=== PATIENT | male | born 1965 | race Caucasian/White ===

== ENCOUNTER 2023-12-31 16:43 | Inpatient (IN) | payer OTHER ==
[~2023-12-31] VITALS: Ht 175.3 cm; Wt 73.5 kg
--- NOTE | 2023-12-31 16:58 | ED.PDOC ---
GI ASSESSMENT HPI Comments 58 year old male NAHOMI presents to the ED with chief complaint of abdominal pain. Patient reports that he was on a hike yesterday and had drank unfiltered stream water, then a few hours later at home he begun to experience diffuse abdominal pain, distention, nausea, vomiting, and diarrhea. EMS relays patient on scene had a blood glucose of 343, having history of diabetes but not taking any medication for management. EMS states patient had ledesma discoloration to his arms and blue color to his lips at the scene, but they have since resolved. Patient denies any hematemesis, fever, chills, dizziness, or melena. Patient was hypertensive and tachycardic at arrival. Chief Complaint: Abdominal Pain Time Seen by MD: 16:52 Reviewed Notes: Nurses Notes, Javascript Front End Developer Notes, Medications, Allergies Information Source: Patient, Emergency Med Personnel Mode of Arrival: EMS Timing: Days Duration: Since onset Prehospital treatment: None Quality: Sharp Vomitus: Bilious, Food Particles, Watery Stool: Moderate, Watery Severity: Moderate Recent: Other (Drank unclean water from stream) Recent Hx of: Diabetes Pain Location: Diffuse, Periumbilical Modifying Factors: Nothing Associated sign and symptoms: Nausea, Vomiting, Diarrhea, Abdominal Pain Past Medical History PAST MEDICAL HISTORY: DM Surgical History: Denies all surgeries Family History Family History: Reviewed,noncontributory to illness Social History Smoker: Non-Smoker Alcohol: Denies ETOH Use Drugs: Denies Drug Use Lives In: Home Constitutional: denies: chills, diaphoresis, fatigue, fever, malaise, sweats, weakness, others EENTM: denies: blurred vision, double vision, ear bleeding, ear discharge, ear drainage, ear pain, ear ringing, eye pain, eye redness, hearing loss, mouth pain, mouth swelling, nasal discharge, nose bleeding, nose congestion, nose pain, photophobia, tearing, throat pain, throat swelling, voice changes, others Respiratory: denies: cough, hemoptysis, orthopnea, SOB at rest, shortness of breath, SOB with excertion, stridor, wheezing, others Cardiovascular: denies: chest pain, dizzy spells, diaphoresis, Dyspnea on exertion, edema, irregular heart beat, left arm pain, lightheadedness, palpitations, PND, syncope, others Gastrointestinal: reports: abdomen distended, abdominal pain, diarrhea, nausea, vomiting; denies: blood streaked bowels, constipated, dysphagia, difficulty swallowing, hematemesis, melena, poor appetite, poor fluid intake, rectal bleeding, rectal pain, others Genitourinary: denies: burning, dysuria, flank pain, frequency, hematuria, incontinence, penile discharge, penile sore, pain, testicle pain, testicle swelling, urgency, others Neurological: reports: headache; denies: dizziness, fainting, left sided numbness, left sided weakness, numbness, paresthesia, pre-existing deficit, right sided numbness, right sided weakness, seizure, speech problems, tingling, tremors, weakness, others Musculoskeletal: denies: back pain, gout, joint pain, joint swelling, muscle pain, muscle stiffness, neck pain, others Integumetry: denies: bruises, change in color, change in hair/nails, dryness, laceration, lesions, lumps, rash, wounds, others Allergic/Immunocompromised: denies: Difficulty Healing, Frequent Infections, Hives, Itching, others Hematologic/Lymphatic: denies: anemia, blood clots, easy bleeding, easy bruising, swollen glands, others Endocrine: denies: excessive hunger, excessive sweating, excessive thirst, excessive urination, flushing, intolerance to cold, intolerance to heat, unexplained weight gain, unexplained weight loss, others Psychiatric: denies: anxiety, bipolar disorder, depression, hopeless, panic disorder, schizophrenia, sleepless, suicidal, others Physical Exam General Appearance: Moderate Distress (Patient presents as a moderately ill 58-year-old male.), Normal HEENT: Normal ENT Inspection, PERRL/EOMI Neck: Full Range of Motion, Non-Tender, Normal, Normal Inspection Respiratory: Chest Non-Tender, Lungs Clear, No Accessory Muscle Use, No Respiratory Distress, Normal Breath Sounds Cardiovascular: No Edema, No JVD, No Murmur, No Gallop, Normal Peripheral Pulses, Regular Rate/Rhythm Breast Exam: Deferred Gastrointestinal: No Pulsatile Mass, Normal Bowel Sounds, Tenderness (Diffuse tenderness to palpation throughout the periumbilical region with a mildly rigid abdomen. No pulsatile masses. No signs of trauma.) Genitalia: Deferred Pelvic: Deferred Rectal: Deferred Extremities: No calf tenderness, Normal capillary refill, Normal inspection, Normal range of motion, Non-tender, No pedal edema Musculoskeletal : Apperance: Normal Neurologic: Alert, No Motor Deficits, Normal Affect, Normal Mood, No Sensory Deficits Cerebellar Function: Normal Reflexes: Normal Skin: Dry, Normal Color, Warm Lymphatic: No Adenopathy Was a procedure done? Was a procedure done?: No GI differential Dx Differential Diagnosis: Appendicitis, Bowel Obstruction, Cholangitis, Cholecystitis, Constipation, Diverticular disease, Gastritis/PUD, Gastroenteritis, Pancreatitis, UTI, Food Poisoning, Bacterial, Parasitic, Viral, Kidney Stone X-Ray, Labs, Meds, VS Vital Signs Date Time Temp Pulse Resp B/P (MAP) Pulse Ox O2 Delivery O2 Flow Rate FiO2 12/31/23 18:32 82 18 139/89 12/31/23 16:48 99.7 114 20 132/92 (105) 95 Lab Test 12/31/23 18:38 12/31/23 18:00 12/31/23 17:06 Range/Units Lactic Acid Level Pending 3.9 *H 0.4-2.0 mmol/L Urine Color Yellow Yellow Urine Clarity Clear Clear Urine pH 5.0 5.0-9.0 Urine Specific [place] 1.038 H 1.001-1.035 Urine Protein Trace H Negative Urine Ketones 1+ H Negative Urine Blood Negative Negative /uL Urine Nitrite Negative Negative Urine Bilirubin Negative Negative Urine Urobilinogen Normal Negative mg/dL Urine Leukocyte Esterase Negative Negative /uL Urine RBC 2 0 - 3 /hpf Urine WBC 1 0 - 3 /hpf Urine Squamous Epithelial Cells Few <5 /hpf Urine Bacteria None seen None Seen /hpf Urine Hyaline Casts Few 0 - 2 /lpf Urine Mucus Few None Seen Urine Glucose 4+ H Normal mg/dL White Blood Count 8.7 4.4-10.8 10^3/uL Red Blood Count 5.43 4.5-5.90 10^6/uL Hemoglobin 18.5 H 13.5-17.5 g/dL Hematocrit 54.5 H 41.0-53.0 % Mean Corpuscular Volume 100.4 H 80.0-100.0 fL Mean Corpuscular Hemoglobin 34.0 H 28.0-32.0 pg Mean Corpuscular Hemoglobin Concent 33.9 32.0-36.0 g/dL Red Cell Distribution Width 13.4 11.8-14.3 % Platelet Count 323 140-450 10^3/uL Mean Platelet Volume 7.6 6.9-10.8 fL Neutrophils (%) (Auto) 83.7 H 37.0-80.0 % Lymphocytes (%) (Auto) 7.1 L 10.0-50.0 % Monocytes (%) (Auto) 6.8 0.0-12.0 % Eosinophils (%) (Auto) 1.3 0.0-7.0 % Basophils (%) (Auto) 1.1 0.0-2.0 % Neutrophils # (Auto) 7.2 1.6-8.6 10 ^3/uL Lymphocytes # (Auto) 0.6 0.4-5.4 10 ^3/uL Monocytes # (Auto) 0.6 0-1.3 10 ^3/uL Eosinophils # (Auto) 0.1 0-0.8 10 ^3/uL Basophils # (Auto) 0.1 0-0.2 10 ^3/uL Nucleated Red Blood Cells 0.3 % Sodium Level 129 L 136-145 mmol/L Potassium Level 4.1 3.5-5.1 mmol/L Chloride Level 98 98-107 mmol/L Carbon Dioxide Level 22 20-31 mmol/L Anion Gap 9 5-15 Blood Urea Nitrogen 17 9-23 mg/dL Creatinine 1.15 0.700-1.30 mg/dL Glomerular Filtration Rate Calc 74 >90 mL/min BUN/Creatinine Ratio 14.8 10.0-20.0 Serum Glucose 362 H 74-106 mg/dL Calcium Level 9.6 8.7-10.4 mg/dL Total Bilirubin 0.8 0.2-1.0 mg/dL Aspartate Amino Transferase (AST) 20 13-40 U/L Alanine Aminotransferase (ALT) 31 7-40 U/L Alkaline Phosphatase 95 46-116 U/L Troponin I High Sensitivity 3 L </=54 ng/L Total Protein 7.7 5.7-8.2 g/dL Albumin 4.8 3.2-4.8 g/dL Lipase 36 12-53 U/L Current Medications Medications (Trade) Dose Ordered Sig/Damien Route Start Time Stop Time Status Last Admin Ondansetron HCl (Zofran) 4 mg ONCE ONCE IM 12/31/23 17:00 12/31/23 17:01 DC 12/31/23 18:33 Metronidazole (Flagyl Tablet) 500 mg ONCE ONCE PO 12/31/23 17:00 12/31/23 17:01 DC 12/31/23 18:33 Hydromorphone HCl (Dilaudid Injection) 0.5 mg ONCE ONCE IM 12/31/23 17:00 12/31/23 17:01 DC 12/31/23 18:32 Sodium Chloride 1,000 ml @ 1,000 mls/hr Q1H ONCE IV 12/31/23 18:30 12/31/23 19:29 12/31/23 19:09 Insulin Human Lispro (HumaLOG) 15 units ONCE ONCE SC 12/31/23 18:30 12/31/23 18:31 DC 12/31/23 19:09 Pantoprazole Sodium (Protonix) 40 mg ONCE ONCE IV 12/31/23 19:00 12/31/23 19:01 DC 12/31/23 19:10 X-Ray, Labs, Meds, VS Comment All studies performed the ED today were evaluated by me personally. Serum laboratories revealed a hyponatremia state as well as a hyperglycemic and elevated lactic acid concern. EKG confirmed a sinus rhythm with a rate of 96. Prolonged MD interval was noted with biatrial enlargement. MD interval was 246 and QT interval was 332. CT of abdomen and pelvis revealed a high-grade small- bowel obstruction with likely transition point right lower quadrant. Surgical evaluation was recommended. Patient will be admitted for surgical consultation, pain management , electrolyte and blood sugar management. Time of 1ST Reevaluation: 19:20 Reevaluation 1ST: Improved Consultation: PCP, GI, Surgery Patient Education/Counseling: Diagnosis, Treatment Family Education/Counseling: Diagnosis, Treatment, No Family Present Departure 1 Departure Time of Disposition: 19:21 Impression: Primary Impression: Small bowel obstruction Additional Impressions: Hyponatremia Elevated lactic acid level Hyperglycemia due to diabetes mellitus Disposition: ADMITTED INPATIENT Condition: Stable Discharged With: Self, Spouse Critical Care Note Critical Care Time?: No Stability Stability form required: No Heart Score Heart Score: Heart Score Response (Comments) Value History Slightly Suspicious 0 EKG Repolarization Disturb 1 Age 45-64 1 Risk Factors 1 or 2 risk factors 1 Troponin Normal limit 0 Total 3 I personally scribed for MEL WILSON PAC ([email or web address]) on 12/31/23 at 16:58. Electronically submitted by Paul Harman ([email or web address]). MEL WILSON PAC Dec 31, 2023 16:58
[2023-12-31 17:28] LABS: Basophils # (auto) 0.1 10 ^3/uL (0-0.2); Basophils % (auto) 1.1 % (0.0-2.0); Eosinophils # (auto) 0.1 10 ^3/uL (0-0.8); Eosinophils % (auto) 1.3 % (0.0-7.0); Hematocrit 54.5 % (41.0-53.0); Hemoglobin 18.5 g/dL (13.5-17.5); Lymphocytes # (auto) 0.6 10 ^3/uL (0.4-5.4); Lymphocytes % (auto) 7.1 % (10.0-50.0); Mean Corpuscular Hgb Conc. 33.9 g/dL (32.0-36.0); Mean Corpuscular Volume 100.4 fL (80.0-100.0); Monocytes # (auto) 0.6 10 ^3/uL (0-1.3); Monocytes % (auto) 6.8 % (0.0-12.0); Neutrophils # (auto) 7.2 10 ^3/uL (1.6-8.6); Neutrophils % (auto) 83.7 % (37.0-80.0); Nucleated Red Blood Cells % 0.3 %; Platelet Count (auto) 323 10^3/uL (140-450); Red Blood Cells 5.43 10^6/uL (4.5-5.90); Red Cell Distribution Width 13.4 % (11.8-14.3); White Blood Cell 8.7 10^3/uL (4.4-10.8)
--- NOTE | 2023-12-31 18:07 | DVH ---
Exam: CT CT AB PEL WO CON-NO ORAL OR IV History: Diffuse abdominal pain Comparison Study: None Technique: Multidetector spiral CT of the abdomen and pelvis was performed from lung bases to pubic symphysis. Imaging was performed without IV contrast. Axial, coronal and sagittal multiplanar reform ats were obtained from the axial data set by the technologist. Radiation dose : Abdomen/Pelvis: CTDIvol 6.86 mGy, DLP 369.2 mGy*cm. Findings: Evaluation of solid organs is limited due to lack of intravenous contrast use. Lung Bases: No acute or significant lung base finding. Normal heart size. No pleural or pericardial effusion. Liver: The liver is normal in size. No focal lesions. Gallbladder and biliary Tree: Unremarkable Spleen: Unremarkable Pancreas: The pancreas is grossly normal in appearance. Adrenal Glands: Unremarkable Kidneys: Likely hyperdense right renal cyst is sub cm. No hydronephrosis or nephrolithiasis. Bladder: Grossly unremarkable for degree of distention. Bowel: The stomach is grossly normal in appearance. There is diffuse distention of small bowel with a ir-fluid levels. Possible transition point in the right lower quadrant. The appendix is not visualiz ed; however, no secondary findings of acute appendicitis identified. Ascites: Absent Lymphadenopathy: No mesenteric, retroperitoneal or periportal lymphadenopathy. Abdominal wall and Mesentery: Unremarkable. Vasculature: The visualized abdominal aorta is normal in size and caliber. Evaluation of abdominal a nd pelvic vessels is limited due to lack of intravenous contrast. Pelvic Organs: Unremarkable Musculoskeletal: No aggressive focal bony lesions, acute fractures or dislocation. IMPRESSION: 1. High-grade small-bowel obstruction with a likely transition point in the right lower quadrant. Solares rgical evaluation is recommended. Radiation optimization: All CT scans at this facility use at least one of these dose optimization yon hniques: Automated exposure control mA and/or kV adjustment per patient size (includes targeted exams where dose is matched to clinical indication) or iterative reconstruction. HS:Y
[2023-12-31 18:18] LABS: Alanine Aminotransferase 31 U/L (7-40); Albumin 4.8 g/dL (3.2-4.8); Alkaline Phosphatase 95 U/L (46-116); Aspartate Aminotransferase 20 U/L (13-40); Bilirubin, Total 0.8 mg/dL (0.2-1.0); Calcium 9.6 mg/dL (8.7-10.4); Chloride 98 mmol/L (98-107); Glucose 362 mg/dL (74-106); Lipase 36 U/L (12-53); Potassium 4.1 mmol/L (3.5-5.1); Sodium 129 mmol/L (136-145); Total Protein 7.7 g/dL (5.7-8.2)
[2023-12-31 18:20] LABS: Anion Gap 9 (5-15); BUN/Creatinine Ratio 14.8 (10.0-20.0); Blood Urea Nitrogen 17 mg/dL (9-23); Carbon Dioxide 22 mmol/L (20-31)
[2023-12-31 18:22] LABS: Lactic Acid w/Reflex 3.9 mmol/L (0.4-2.0)
[2023-12-31] MEDS: HYDROmorphone HCL 2 MG/ML VL/or syr IM ONE (18:32)
[2023-12-31] MEDS: ONDANSETRON HCL 4 MG/2 ML VIAL IM ONE (18:33)
[2023-12-31] MEDS: metroNIDAZOLE 500 MG TAB PO ONE (18:33)
[2023-12-31 18:42] LABS: Urine Bacteria None Seen /hpf (None Seen)
[2023-12-31 18:53] LABS: Urine Blood Negative /uL (Negative); Urine Clarity Clear (Clear); Urine Color Yellow (Yellow); Urine Hyaline Cast FEW /lpf (0 - 2); Urine Mucus FEW (None Seen); Urine Protein, UAD TRACE (Negative); Urine Specific Gravity 1.038 (1.001-1.035); Urine Urobilinogen Normal (Negative); Urine WBC 1 /hpf (0 - 3)
[2023-12-31] MEDS: SODIUM CHLORIDE 0.9% 1,000 ML IV ONE (19:09)
[2023-12-31] MEDS: INSULIN LISPRO (HUMAN) 100 UNITS/ML ML SC ONE (19:09)
[2023-12-31] MEDS: PANTOPRAZOLE 40 MG/10 ML VIAL INJ IV ONE (19:10)
[2023-12-31 19:15] VITALS: PULSE 102; RESP 12; O2SAT 96
[2023-12-31] MEDS: HYDROMORPHONE HCL 1 MG/ML INJ IV ONE (20:58)
[2023-12-31] MEDS: HYDROmorphone HCL 2 MG/ML VL/or syr IV ONE (21:16)
[2023-12-31] MEDS ORDERED: ONDANSETRON HCL 4 MG/2 ML VIAL IV PRN (22:45)
[2023-12-31] MEDS ORDERED: MORPHINE SULFATE INJ 2 MG/ml SYRG IV PRN (22:45)
[2023-12-31] MEDS ORDERED: DEXTROSE (50%) 50ML SYRG IV PRN (22:45)
[2023-12-31] MEDS ORDERED: NITROGLYCERIN 0.4 MG SL TAB SL PRN (22:45)
[2023-12-31] MEDS: SODIUM CHLORIDE 0.9% 1,000 ML IV SCH (22:45)
[2023-12-31] MEDS ORDERED: ACETAMINOPHEN 325 MG TAB PO PRN (22:45)
--- NOTE | 2023-12-31 22:47 | DVHHP2 ---
History of Present Illness Reason for Visit: Small-bowel obstruction History of Present Illness The patient is a 58-year-old male with past medical history of diabetes mellitus who presented to [facility] ED with complaint of acute abdominal pain. Patient reports that he was on a hike yesterday and had drank unfiltered stream water, a few hours later at home, he begun to experience diffuse abdominal pain, distention, nausea, vomiting, and diarrhea, getting worse that prompted this visit. Patient was seen and evaluated in the ED, laboratory data shows WBC 8.7, hemoglobin 18.5, hematocrit 54.5, platelets 323, sodium 129, potassium 4.1, BUN 17, creatinine 1.15, glucose 362, lactic acid 3.7 troponin 3, AST 20, ALT 31, lipase 36. Abdomen/pelvis CT revealing high-grade small-bowel obstruction with likely transition point in the right lower quadrant. Patient was started on IV antibiotic regimen Flagyl, given IV Dilaudid 0 5 mg x 1, please see medication orders section in the computer. On my assessment, patient denies chest pain, no headache, no dizziness, no diaphoresis, no shortness of breath, no abdominal pain, nausea or vomiting at this moment, no hematemesis, no fever, no chills. Patient was admitted for further evaluation and medical management. Past Medical History DM Past Surgical History Denies all surgeries Family History Reviewed, noncontributory to the management of this case. Past Social History The patient lives at home, denies smoking, alcohol or illicit drugs abuse. Review of Systems Constitutional: No: Fever, Chills, Sweats, Weakness, Malaise, Other Eyes: No: Pain, Vision change, Conjunctivae inflammation, Eyelid inflammation, Other, Redness ENT: No: Ear pain, Ear discharge, Nose pain, Nose discharge, Nose congestion, Mouth pain, Mouth swelling, Throat pain, Throat swelling, Other Respiratory: No: Cough, Dry, Shortness of breath, SOB with excertion, Wheezing, Hemoptysis, Pleuritic Pain, Sputum, Wheezing, Other Cardiovascular: No: Chest Pain, Palpitations, Orthopnea, Paroxysmal Noc. Dyspnea, Edema, Lt Headedness, Other Gastrointestinal: Nausea, Vomiting, Abdominal Pain, Diarrhea, Other (Abdominal distention); No: Constipation, Melena, Hematochezia Genitourinary: No Dysuria, No Frequency, No Incontinence, No Hematuria, No Retention, No Other Musculoskeletal: No: other, neck pain, shoulder pain, arm pain, back pain, hand pain, leg pain, foot pain Skin: No: Rash, Lesions, Jaundice, Bruising, Other Neurological: Other (Headache); No: Weakness, Numbness, Incoordination, Change in speech, Confusion, Seizures Exam Vital Signs Vital Signs Date Time Temp Pulse Resp B/P (MAP) Pulse Ox O2 Delivery O2 Flow Rate FiO2 12/31/23 21:16 102 14 120/88 12/31/23 19:15 98.8 96 98.8 12/31/23 19:15 Room Air* 0 21 General Appearance: Alert, Oriented X3, Cooperative, No acute distress HEENT: Atraumatic, PERRLA, EOMI, Mucous membr. moist/pink Respiratory: Clear to auscultation, Normal air movement Cardiovascular: Regular rate, Normal S1, Normal S2, No murmurs Abdominal: Normal bowel sounds, Soft, No hepatospenomegaly, No masses, Other (Reports tenderness) Extremities: No clubbing, No cyanosis, No edema, Normal pulses, No tenderness/swelling Skin: No rashes, No breakdown, No significant lesion Neuro: Normal gait, Normal speech, Strength at 5/5 X4 ext, Normal tone, Sensation intact, Cranial nerves 3-12 NL, Reflexes 2+ Psych/Mental Status: Mental status NL, Mood NL Labs/Xrays Labs Test 12/31/23 18:38 12/31/23 18:00 12/31/23 17:06 Range/Units Lactic Acid Level 3.7 *H 0.4-2.0 mmol/L Urine Color Yellow Yellow Urine Clarity Clear Clear Urine pH 5.0 5.0-9.0 Urine Specific [place] 1.038 H 1.001-1.035 Urine Protein Trace H Negative Urine Ketones 1+ H Negative Urine Blood Negative Negative /uL Urine Nitrite Negative Negative Urine Bilirubin Negative Negative Urine Urobilinogen Normal Negative mg/dL Urine Leukocyte Esterase Negative Negative /uL Urine RBC 2 0 - 3 /hpf Urine WBC 1 0 - 3 /hpf Urine Squamous Epithelial Cells Few <5 /hpf Urine Bacteria None seen None Seen /hpf Urine Hyaline Casts Few 0 - 2 /lpf Urine Mucus Few None Seen Urine Glucose 4+ H Normal mg/dL White Blood Count 8.7 4.4-10.8 10^3/uL Red Blood Count 5.43 4.5-5.90 10^6/uL Hemoglobin 18.5 H 13.5-17.5 g/dL Hematocrit 54.5 H 41.0-53.0 % Mean Corpuscular Volume 100.4 H 80.0-100.0 fL Mean Corpuscular Hemoglobin 34.0 H 28.0-32.0 pg Mean Corpuscular Hemoglobin Concent 33.9 32.0-36.0 g/dL Red Cell Distribution Width 13.4 11.8-14.3 % Platelet Count 323 140-450 10^3/uL Mean Platelet Volume 7.6 6.9-10.8 fL Neutrophils (%) (Auto) 83.7 H 37.0-80.0 % Lymphocytes (%) (Auto) 7.1 L 10.0-50.0 % Monocytes (%) (Auto) 6.8 0.0-12.0 % Eosinophils (%) (Auto) 1.3 0.0-7.0 % Basophils (%) (Auto) 1.1 0.0-2.0 % Neutrophils # (Auto) 7.2 1.6-8.6 10 ^3/uL Lymphocytes # (Auto) 0.6 0.4-5.4 10 ^3/uL Monocytes # (Auto) 0.6 0-1.3 10 ^3/uL Eosinophils # (Auto) 0.1 0-0.8 10 ^3/uL Basophils # (Auto) 0.1 0-0.2 10 ^3/uL Nucleated Red Blood Cells 0.3 % Sodium Level 129 L 136-145 mmol/L Potassium Level 4.1 3.5-5.1 mmol/L Chloride Level 98 98-107 mmol/L Carbon Dioxide Level 22 20-31 mmol/L Anion Gap 9 5-15 Blood Urea Nitrogen 17 9-23 mg/dL Creatinine 1.15 0.700-1.30 mg/dL Glomerular Filtration Rate Calc 74 >90 mL/min BUN/Creatinine Ratio 14.8 10.0-20.0 Serum Glucose 362 H 74-106 mg/dL Calcium Level 9.6 8.7-10.4 mg/dL Total Bilirubin 0.8 0.2-1.0 mg/dL Aspartate Amino Transferase (AST) 20 13-40 U/L Alanine Aminotransferase (ALT) 31 7-40 U/L Alkaline Phosphatase 95 46-116 U/L Troponin I High Sensitivity 3 L </=54 ng/L Total Protein 7.7 5.7-8.2 g/dL Albumin 4.8 3.2-4.8 g/dL Lipase 36 12-53 U/L PATIENT: LEONEL RODRIGUEZ ACCT: [id number] UNIT: [id number] : 1965 LOC: ER ROOM / BED: / AGE / SEX: 58 / M ADM STATUS: REG ER SERVICE [id number] ORDERING PHYSICIAN: MEL WILSON PAC PROCEDURE(s): ABPL - CT AB PEL WO CON-NO ORAL OR IV REASON: Diffuse abdominal pain ORDER NUMBER(s): [id number], ACCESSION NUMBER(s): [id number] Exam: CT CT AB PEL WO CON-NO ORAL OR IV History: Diffuse abdominal pain Comparison Study: None Technique: Multidetector spiral CT of the abdomen and pelvis was performed from lung bases to pubic symphysis. Imaging was performed without IV contrast. Axial, coronal and sagittal multiplanar reformats were obtained from the axial data set by the technologist. Radiation dose: Abdomen/Pelvis: CTDIvol 6.86 mGy, DLP 369.2 mGy*cm. Findings: Evaluation of solid organs is limited due to lack of intravenous contrast use. Lung Bases: No acute or significant lung base finding. Normal heart size. No pleural or pericardial effusion. Liver: The liver is normal in size. No focal lesions. Gallbladder and biliary Tree: Unremarkable Spleen: Unremarkable Pancreas: The pancreas is grossly normal in appearance. Adrenal Glands: Unremarkable Kidneys: Likely hyperdense right renal cyst is sub cm. No hydronephrosis or nephrolithiasis. Bladder: Grossly unremarkable for degree of distention. Bowel: The stomach is grossly normal in appearance. There is diffuse distention of small bowel with air-fluid levels. Possible transition point in the right lower quadrant. The appendix is not visualized; however, no secondary findings of acute appendicitis identified. Ascites: Absent Lymphadenopathy: No mesenteric, retroperitoneal or periportal lymphadenopathy. Abdominal wall and Mesentery: Unremarkable. Vasculature: The visualized abdominal aorta is normal in size and caliber. Evaluation of abdominal and pelvic vessels is limited due to lack of intravenous contrast. Pelvic Organs: Unremarkable Musculoskeletal: No aggressive focal bony lesions, acute fractures or dislocation. IMPRESSION: 1. High-grade small-bowel obstruction with a likely transition point in the right lower quadrant. Surgical evaluation is recommended. Assessment/Plan Assessment/Plan Small bowel obstruction Acute abdominal pain Hyponatremia Elevated lactic acid level Hyperglycemia due to diabetes mellitus Plan 1. Admit to telemetry unit 2. Breathing treatment 3. Pain control management 4. IV antibiotic management 5. Management of fluids and electrolytes 6. Consultation for surgery 7. Diagnostic test abdomen/pelvis CT 8. DVT prophylaxis on SCDs 9. Repeat labs CBC, CMP in a.m. 10. Home medication reviewed and reconciled 11. Continue with current medical management 12. Treatment plan discussed with patient and RN. Patient verbalized understanding. Plan discussed with: Patient, Other (RN) Problem List: (1) Small bowel obstruction (2) Acute abdominal pain (3) Hyponatremia (4) Elevated lactic acid level (5) Hyperglycemia due to diabetes mellitus Date of Service: Dec 31, 2023 Billing Provider: JONATHAN GARCIA DNP Common Visit Codes: [id number] INP/OBS CARE (HIGH) JONATHAN GARCIA DNP Dec 31, 2023 22:47
[2023-12-31] MEDS: LIDOCAINE 2% JELLY 11ml (GLYDO) ONE (23:11)
[2024-01-01] VITALS (9 sets, daily range): BP systolic 113–137; BP diastolic 71–94; PULSE 83–101; RESP 16–20; TEMP 97.7–99; O2SAT 92–95
[2024-01-01] MEDS: ACCU-CHEK COMFORT CURVE STRIP VI SCH
[2024-01-01] MEDS: InsuLIN REG 1unit/0.01ml Soln (100units/ml) SC SCH
--- NOTE | 2024-01-01 00:33 | DVH ---
XY CHEST XRAY 1 VIEW, HISTORY: S/P NGT placement COMPARISON: None None TECHNICAL DATA: 1 view of the chest was obtained. FINDINGS: Lines and tubes: NG projects over the stomach with a gaseous distended stomach. Cardiomediastinal silhouette: normal Pulmonary vasculature: normal Lung expansion: normal Lung airspace: normal Lung interstitium: normal Pleura: normal Pneumothorax: no Bones: Unremarkable Other: no IMPRESSION: NG projects over the stomach with a gaseous distended stomach.
[2024-01-01] MEDS: HYDROmorphone HCL 2 MG/ML VL/or syr IV PRN (04:07)
[2024-01-01 04:11] LABS: Basophils # (auto) 0 10 ^3/uL (0-0.2); Basophils % (auto) 0.7 % (0.0-2.0); Eosinophils # (auto) 0.1 10 ^3/uL (0-0.8); Eosinophils % (auto) 0.9 % (0.0-7.0); Hematocrit 47.8 % (41.0-53.0); Hemoglobin 16.2 g/dL (13.5-17.5); Lymphocytes # (auto) 0.6 10 ^3/uL (0.4-5.4); Lymphocytes % (auto) 8.8 % (10.0-50.0); Mean Corpuscular Hemoglobin 33.3 pg (28.0-32.0); Mean Corpuscular Hgb Conc. 33.8 g/dL (32.0-36.0); Mean Corpuscular Volume 98.4 fL (80.0-100.0); Monocytes # (auto) 0.8 10 ^3/uL (0-1.3); Neutrophils # (auto) 5.3 10 ^3/uL (1.6-8.6); Neutrophils % (auto) 77.6 % (37.0-80.0); Nucleated Red Blood Cells % 0.1 %; Platelet Count (auto) 280 10^3/uL (140-450); Red Blood Cells 4.85 10^6/uL (4.5-5.90); Red Cell Distribution Width 13.1 % (11.8-14.3); White Blood Cell 6.9 10^3/uL (4.4-10.8)
[2024-01-01 04:27] LABS: Alanine Aminotransferase 27 U/L (7-40); Albumin 3.9 g/dL (3.2-4.8); Alkaline Phosphatase 70 U/L (46-116); Anion Gap 8 (5-15); Aspartate Aminotransferase 20 U/L (13-40); BUN/Creatinine Ratio 22.4 (10.0-20.0); Bilirubin, Total 0.5 mg/dL (0.2-1.0); Blood Urea Nitrogen 24 mg/dL (9-23); Calcium 8.9 mg/dL (8.7-10.4); Carbon Dioxide 26 mmol/L (20-31); Chloride 101 mmol/L (98-107); Potassium 4.3 mmol/L (3.5-5.1); Total Protein 5.8 g/dL (5.7-8.2)
[2024-01-01 04:32] LABS: Glucose 227 mg/dL (74-106); Sodium 135 mmol/L (136-145)
[2024-01-01] MEDS: metroNIDAZOLE 500MG/100ML 100 ML IV SCH (05:21)
[2024-01-01] MEDS ORDERED: GASTROGRAFIN 120 ML SOL ONE (09:50)
[2024-01-01] MEDS: PANTOPRAZOLE 40 MG/10 ML VIAL INJ IV SCH (10:42)
--- NOTE | 2024-01-01 10:58 | DVHPN2 ---
Progress Note Date Seen: Jan 01, 2024 Medical Necessity Reason Pt with a Central, PICC or Fol: No Subjective Review of Systems: HEENT:Normal, RESPIRATORY:Normal, GI:Normal, :Normal, NEURO:Normal Objective vital signs Vital Sign Date Time Temp Pulse Resp B/P (MAP) Pulse Ox O2 Delivery O2 Flow Rate FiO2 01/01/24 09:18 97.9 94 17 126/82 (97) 95 97.9 01/01/24 03:00 Room Air* 0 21 Total Intake and Output 12/31/23 12/31/23 01/01/24 15:00 23:00 07:00 Intake Total 580 ml Output Total 400 ml Balance 180 ml medications Current Medications Medications Dose Ordered Sig/Damien Route Start Time Stop Time Status Last Admin Dose Admin Pantoprazole Sodium 40 mg DAILY IV 01/01/24 10:00 01/01/24 10:42 40 MG Metronidazole 100 ml @ 100 mls/hr Q8HR IV 01/01/24 06:00 01/01/24 05:21 100 MLS/HR Hydromorphone HCl 0.5 mg Q4HPRN PRN IV 12/31/23 22:45 01/01/24 04:07 0.5 MG Diagnostic Test (Pha) 1 strip Q6HR 01/01/24 00:00 01/01/24 06:33 1 STRIP Insulin Human Regular Q6HR SC 01/01/24 00:00 01/01/24 06:37 4 UNITS Dextrose 50 ml UD PRN IV 12/31/23 22:45 Sodium Chloride 1,000 ml @ 120 mls/hr Q8H20M IV 12/31/23 22:45 12/31/23 22:45 120 MLS/HR Acetaminophen/ Hydrocodone Bitart 1 tab Q4HP PRN PO 12/31/23 22:45 Ondansetron HCl 4 mg Q4HP PRN IV 12/31/23 22:45 Acetaminophen 650 mg Q6HP PRN PO 12/31/23 22:45 Nitroglycerin 0.4 mg Q5MINP PRN SL 12/31/23 22:45 Morphine Sulfate 2 mg Q30M PRN IV 12/31/23 22:45 Examination: GENERAL:Normal, LUNGS:Normal, CVS:Normal, ABDOMEN:Normal, SKIN:Normal, NEURO:Normal laboratory and microbiology Laboratory Tests 01/01/24 03:59 Test 01/01/24 03:59 Range/Units Serum Glucose 227 #H 74-106 mg/dL Labs and/or images reviewed: Labs reviewed by me, Image(s) reviewed by me Problem List/Assessment/Plan Problem List/Assessment/Plan 1. Small bowel obstruction Small-bowel follow-through, NG tube, IV fluids, keep NPO 2. Acute abdominal pain related to SBO 3. Hyponatremia Monitor 4. Lactic acidosis likely lab error 5. Type 2 diabetes with hyperglycemia Insulin sliding scale Subjective: Awake and alert Objective: Patient was admitted for small-bowel obstruction. Patient has NG tube placed and is getting small-bowel follow-through. Patient had large bowel movement today and denies any nausea. Patient is still pending surgical consult Plan: Pending surgical consult, keep NPO, IV fluids, insulin sliding scale, monitor labs, awaiting for return of bowel function, advised the patient to walk Plan discussed with: Patient Date of Service: Jan 01, 2024 Billing Provider: JOSE DAVIS MD Common Visit Codes: [id number] INP/OBS CARE (MOD) YAMILETH BARAHONA HAIR DRYER Jan 01, 2024 10:58
--- NOTE | 2024-01-01 15:26 | DVH ---
Procedure: XY SMALL BOWEL SERIES-W GASTROGRA Reason for study/Clinical History: R/O OBSTRUCTION Comparison Study: CT abdomen and pelvis 12/31/2023 Technique: Single contrast small bowel series performed. FINDINGS/IMPRESSION: Initial applied anthropologist view of the abdomen and pelvis demonstrates multiple dilated loops of bowel. Contrast is identified within the colon by 5 hours. Findings suspicious for at least a partial small bowel obstruction.
[2024-01-01] MEDS: HYDROcodone-ACET 5/325MG TAB PO PRN (21:26)
[2024-01-02] VITALS (8 sets, daily range): BP systolic 102–127; BP diastolic 57–81; PULSE 71–94; RESP 17–20; TEMP 97.9–99.4; O2SAT 93–97
[2024-01-02 06:36] LABS: Basophils # (auto) 0.1 10 ^3/uL (0-0.2); Eosinophils # (auto) 0.1 10 ^3/uL (0-0.8); Eosinophils % (auto) 1.4 % (0.0-7.0); Hematocrit 42.1 % (41.0-53.0); Hemoglobin 14.4 g/dL (13.5-17.5); Lymphocytes # (auto) 0.9 10 ^3/uL (0.4-5.4); Lymphocytes % (auto) 15.5 % (10.0-50.0); Mean Corpuscular Hemoglobin 33.9 pg (28.0-32.0); Mean Corpuscular Hgb Conc. 34.3 g/dL (32.0-36.0); Mean Corpuscular Volume 98.9 fL (80.0-100.0); Monocytes # (auto) 0.9 10 ^3/uL (0-1.3); Monocytes % (auto) 14.2 % (0.0-12.0); Neutrophils # (auto) 4.1 10 ^3/uL (1.6-8.6); Neutrophils % (auto) 67.9 % (37.0-80.0); Platelet Count (auto) 235 10^3/uL (140-450); Red Blood Cells 4.26 10^6/uL (4.5-5.90)
[2024-01-02 06:42] LABS: Calcium 8.8 mg/dL (8.7-10.4); Chloride 107 mmol/L (98-107); Potassium 4.1 mmol/L (3.5-5.1); Sodium 141 mmol/L (136-145)
[2024-01-02 06:43] LABS: Anion Gap 7 (5-15); Carbon Dioxide 27 mmol/L (20-31)
[2024-01-02 06:48] LABS: BUN/Creatinine Ratio 18.9 (10.0-20.0); Blood Urea Nitrogen 18 mg/dL (9-23)
[2024-01-02 06:49] LABS: Magnesium 1.9 mg/dL (1.6-2.6)
[2024-01-02 07:00] LABS: Glucose 126 mg/dL (74-106)
--- NOTE | 2024-01-02 08:44 | ECG ---
[facility] Test Date: 2023-12-31 Test Time: 18:43:09 Pat Name: LEONEL RODRIGUEZ Department: ED Room: [address] [place] [address] Gender: M Unit Secy: EMELYN : 1965 Requested By: MEL WILSON Order Number: [id number] Reading MD: Measurements Intervals [place] Rate: 96 P: 73 NJ: 246 QRS: 66 QRSD: 93 T: 35 QT: 332 QTc: 420 Interpretive Statements Sinus rhythm Prolonged NJ interval Biatrial enlargement Minimal ST elevation, inferior leads Please click the below link to view image of tracing.
--- NOTE | 2024-01-02 12:51 | DVHPN2 ---
Progress Note Date Seen: Jan 02, 2024 Medical Necessity Reason Pt with a Central, PICC or Fol: No Subjective Review of Systems: HEENT:Normal, CVS:Normal, RESPIRATORY:Normal, GI:Normal, :Normal, NEURO:Normal Objective vital signs Vital Sign Date Time Temp Pulse Resp B/P (MAP) Pulse Ox O2 Delivery O2 Flow Rate FiO2 01/02/24 09:00 97.9 76 17 126/77 (93) 97 97.9 01/02/24 08:00 Room Air* 0 21 Total Intake and Output 01/01/24 01/01/24 01/02/24 15:00 23:00 07:00 Intake Total 1760 ml 910 ml Balance 1760 ml 910 ml medications Current Medications Medications Dose Ordered Sig/Damien Route Start Time Stop Time Status Last Admin Dose Admin Pantoprazole Sodium 40 mg DAILY IV 01/01/24 10:00 01/02/24 10:23 40 MG Metronidazole 100 ml @ 100 mls/hr Q8HR IV 01/01/24 06:00 01/02/24 06:12 100 MLS/HR Hydromorphone HCl 0.5 mg Q4HPRN PRN IV 12/31/23 22:45 01/01/24 17:27 0.5 MG Diagnostic Test (Pha) 1 strip Q6HR 01/01/24 00:00 01/02/24 06:13 1 STRIP Insulin Human Regular Q6HR SC 01/01/24 00:00 01/02/24 06:17 2 UNITS Dextrose 50 ml UD PRN IV 12/31/23 22:45 Sodium Chloride 1,000 ml @ 120 mls/hr Q8H20M IV 12/31/23 22:45 01/02/24 06:13 120 MLS/HR Acetaminophen/ Hydrocodone Bitart 1 tab Q4HP PRN PO 12/31/23 22:45 01/02/24 06:18 1 TAB Ondansetron HCl 4 mg Q4HP PRN IV 12/31/23 22:45 Acetaminophen 650 mg Q6HP PRN PO 12/31/23 22:45 Nitroglycerin 0.4 mg Q5MINP PRN SL 12/31/23 22:45 Morphine Sulfate 2 mg Q30M PRN IV 12/31/23 22:45 Examination: GENERAL:Normal, LUNGS:Normal, CVS:Normal, ABDOMEN:Normal, SKIN:Normal, NEURO:Normal laboratory and microbiology Laboratory Tests 01/02/24 05:51 Test 01/02/24 05:51 Range/Units Serum Glucose 126 #H 74-106 mg/dL Problem List/Assessment/Plan Problem List/Assessment/Plan 1. Small bowel obstruction Small-bowel follow-through, NG tube, IV fluids, keep NPO 2. Acute abdominal pain related to SBO 3. Hyponatremia Monitor 4. Lactic acidosis likely lab error 5. Type 2 diabetes with hyperglycemia Insulin sliding scale Subjective: Awake and alert Objective: Patient was admitted for small-bowel obstruction. SBFT was consistent with partial obstruction, however patient has been having multiple bowel movements. We will start patient on full liquid diet. Patient has been pending surgical consult for several days now Plan: Stop IV fluids, remove NG tube, start liquid diet, monitor daily labs, awaiting return of bowel function, encourage patient to walk regularly, insulin sliding scale Plan discussed with: Patient My Orders My Orders Orders - YAMILETH BARAHONA Procedure Category Date Status Time Communication Order ORDERS 01/01/24 Transmitted 14:10 Communication Order ORDERS 01/02/24 Transmitted 07:20 Date of Service: Jan 02, 2024 Billing Provider: JOSE DAVIS MD Common Visit Codes: [id number] INP/OBS CARE (MOD) YAMILETH BARAHONA Jan 02, 2024 12:51
--- NOTE | 2024-01-02 14:24 | DVHINCON2 ---
Date of service: Jan 02, 2024 Family History: Patient reports no known family medical history. Allergies: Coded Allergies: No Known Drug Allergy (Verified Allergy, Unknown, 12/31/23) Home Meds No Active Prescriptions or Reported Meds Vital Signs Vital Signs Date Time Temp Pulse Resp B/P (MAP) Pulse Ox O2 Delivery O2 Flow Rate FiO2 01/02/24 13:18 98.1 71 17 119/74 (89) 93 98.1 01/02/24 08:00 Room Air* 0 21 Labs/Diagnostic Data Labs Test 01/02/24 11:56 01/02/24 05:51 01/01/24 03:59 12/31/23 18:38 Range/Units POC Glucose 124 H 70-106 mg/dl White Blood Count 6.0 4.4-10.8 10^3/uL Red Blood Count 4.26 L 4.5-5.90 10^6/uL Hemoglobin 14.4 13.5-17.5 g/dL Hematocrit 42.1 # 41.0-53.0 % Mean Corpuscular Volume 98.9 80.0-100.0 fL Mean Corpuscular Hemoglobin 33.9 H 28.0-32.0 pg Mean Corpuscular Hemoglobin Concent 34.3 32.0-36.0 g/dL Red Cell Distribution Width 13.0 11.8-14.3 % Platelet Count 235 140-450 10^3/uL Mean Platelet Volume 7.6 6.9-10.8 fL Neutrophils (%) (Auto) 67.9 37.0-80.0 % Lymphocytes (%) (Auto) 15.5 10.0-50.0 % Monocytes (%) (Auto) 14.2 H 0.0-12.0 % Eosinophils (%) (Auto) 1.4 0.0-7.0 % Basophils (%) (Auto) 1.0 0.0-2.0 % Neutrophils # (Auto) 4.1 1.6-8.6 10 ^3/uL Lymphocytes # (Auto) 0.9 0.4-5.4 10 ^3/uL Monocytes # (Auto) 0.9 0-1.3 10 ^3/uL Eosinophils # (Auto) 0.1 0-0.8 10 ^3/uL Basophils # (Auto) 0.1 0-0.2 10 ^3/uL Nucleated Red Blood Cells 0.0 % Sodium Level 141 # 136-145 mmol/L Potassium Level 4.1 3.5-5.1 mmol/L Chloride Level 107 98-107 mmol/L Carbon Dioxide Level 27 20-31 mmol/L Anion Gap 7 5-15 Blood Urea Nitrogen 18 9-23 mg/dL Creatinine 0.95 0.700-1.30 mg/dL Glomerular Filtration Rate Calc 93 >90 mL/min BUN/Creatinine Ratio 18.9 10.0-20.0 Serum Glucose 126 #H 74-106 mg/dL Calcium Level 8.8 8.7-10.4 mg/dL Magnesium Level 1.9 1.6-2.6 mg/dL Total Bilirubin 0.5 0.2-1.0 mg/dL Aspartate Amino Transferase (AST) 20 13-40 U/L Alanine Aminotransferase (ALT) 27 7-40 U/L Alkaline Phosphatase 70 46-116 U/L Troponin I High Sensitivity 3 L </=54 ng/L Total Protein 5.8 5.7-8.2 g/dL Albumin 3.9 3.2-4.8 g/dL Lactic Acid Level 3.7 *H 0.4-2.0 mmol/L Test 12/31/23 18:00 12/31/23 17:06 Range/Units Urine Color Yellow Yellow Urine Clarity Clear Clear Urine pH 5.0 5.0-9.0 Urine Specific [place] 1.038 H 1.001-1.035 Urine Protein Trace H Negative Urine Ketones 1+ H Negative Urine Blood Negative Negative /uL Urine Nitrite Negative Negative Urine Bilirubin Negative Negative Urine Urobilinogen Normal Negative mg/dL Urine Leukocyte Esterase Negative Negative /uL Urine RBC 2 0 - 3 /hpf Urine WBC 1 0 - 3 /hpf Urine Squamous Epithelial Cells Few <5 /hpf Urine Bacteria None seen None Seen /hpf Urine Hyaline Casts Few 0 - 2 /lpf Urine Mucus Few None Seen Urine Glucose 4+ H Normal mg/dL Lipase 36 12-53 U/L Assessment ADMITTED FOR PRESUMED SBO, NOW HUNGRY, PASSNG FLATUS, ABDOMEN SOFT AND NON TENDER, WILL ALLOW PO, NO INDICATION FOR SURGICAL INTERVENTION, NO SCARS, NO HERNIAS Plan discussed with: Patient, Spouse PANKAJ ANDRADE MD Jan 02, 2024 14:24
[2024-01-03 05:00] VITALS: BP 116/73; PULSE 68; RESP 18; TEMP 98.3; O2SAT 100
[2024-01-03 06:20] LABS: Basophils # (auto) 0 10 ^3/uL (0-0.2); Basophils % (auto) 0.7 % (0.0-2.0); Eosinophils # (auto) 0.1 10 ^3/uL (0-0.8); Eosinophils % (auto) 2.7 % (0.0-7.0); Hematocrit 39.8 % (41.0-53.0); Hemoglobin 13.6 g/dL (13.5-17.5); Lymphocytes % (auto) 20.4 % (10.0-50.0); Mean Corpuscular Hemoglobin 33.4 pg (28.0-32.0); Mean Corpuscular Hgb Conc. 34.3 g/dL (32.0-36.0); Mean Corpuscular Volume 97.3 fL (80.0-100.0); Monocytes # (auto) 0.7 10 ^3/uL (0-1.3); Monocytes % (auto) 14.5 % (0.0-12.0); Neutrophils % (auto) 61.7 % (37.0-80.0); Nucleated Red Blood Cells % 0.1 %; Platelet Count (auto) 236 10^3/uL (140-450); Red Blood Cells 4.09 10^6/uL (4.5-5.90); Red Cell Distribution Width 12.7 % (11.8-14.3); White Blood Cell 4.8 10^3/uL (4.4-10.8)
[2024-01-03 06:41] LABS: Alanine Aminotransferase 17 U/L (7-40); Albumin 3.5 g/dL (3.2-4.8); Alkaline Phosphatase 78 U/L (46-116); Anion Gap 6 (5-15); Aspartate Aminotransferase 13 U/L (13-40); BUN/Creatinine Ratio 13.5 (10.0-20.0); Blood Urea Nitrogen 14 mg/dL (9-23); Carbon Dioxide 27 mmol/L (20-31); Chloride 104 mmol/L (98-107); Glucose 224 mg/dL (74-106); Magnesium 1.7 mg/dL (1.6-2.6); Potassium 3.8 mmol/L (3.5-5.1); Sodium 137 mmol/L (136-145)
[2024-01-03 06:42] LABS: Bilirubin, Total 0.4 mg/dL (0.2-1.0); Total Protein 5.8 g/dL (5.7-8.2)
[2024-01-03 08:00] VITALS: PULSE 70; PULSE 72; RESP 18; O2SAT 99
[2024-01-03 09:00] VITALS: BP 133/84; PULSE 72; RESP 18; TEMP 98.2; O2SAT 99
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
[2024-01-03 12:30] VITALS: BP 151/88; PULSE 87; RESP 18; TEMP 98.6; O2SAT 96
== END 2024-01-03 15:33 | disposition home or self-care (01) | DRG 247 ==
LOC: ER 16:43 → EDBD 16:43 → TELE 22:32 → TELE-E-ADS 01-01 02:42 → TELE-EAST 01-02 20:05
PROVIDERS: ADMIT Nurse Practitioner Family; ATTEND Nurse Practitioner
PROC: 0D9670Z Drainage of Stomach with Drainage Device, Via Natural or Artificial Opening (ICD-10-PCS; principal; 2023-12-31)
DX: K56.600 Partial intestinal obstruction, unspecified as to cause (principal); E87.20 Acidosis, unspecified; E87.1 Hypo-osmolality and hyponatremia; E11.65 Type 2 diabetes mellitus with hyperglycemia
CPT/HCPCS: 36415; 71045; 74176; 74250; 80048; 80053; 81001; 82962; 83605; 83690; 83735; 84484; 85025; 93005; G0378; J1815; J2405; J2470; J3490

== ENCOUNTER 2024-04-24 11:22 | Emergency (ER) | payer OTHER ==
[~2024-04-24] VITALS: Ht 175.3 cm; Wt 76.0 kg
[2024-04-24 11:22] VITALS: BP 131/82; PULSE 74; RESP 16; O2SAT 100
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
== END 2024-04-24 12:10 | disposition left against medical advice (07) ==
LOC: ER 11:22 → EDBD 11:22 → ER 12:10
DX: R11.2 Nausea with vomiting, unspecified (principal); E11.9 Type 2 diabetes mellitus without complications; R42 Dizziness and giddiness; G93.41 Metabolic encephalopathy